=== PATIENT | male | born 1985 | race African-American/Black ===

== ENCOUNTER 2016-10-10 01:54 | Emergency (ER) | payer OTHER ==
[~2016-10-10] VITALS: Ht 180.3 cm; Wt 72.6 kg
--- NOTE | 2016-10-10 02:00 | NUR ---
PT AMBULATED INTO THE ER WITH A C/O SI WITH A PLAN TO JUMP OFF A BUILDING. PT WAS WALKING AROUND AND SAW THE HOSPITAL AND DECIDED TO GET HELP. PT APPEARS WELL TAKEN CARE OF, CLEAN, AND COOPERATIVE. SHAY ESCAMILLA LCSW, IS AT THE BEDSIDE SPEAKING TO THE PT.
--- NOTE | 2016-10-10 02:40 | NUR ---
URINE SAMPLE OBTAINED.
[2016-10-10 02:45] LABS: BASOPHILS # (AUTO) 0.1 /CMM (0.0-0.2); BASOPHILS % (AUTO) 0.9 % (0.0-2.0); EOSINOPHILS # (AUTO) 0.2 /CMM (0.0-0.7); HEMATOCRIT 39 % (39-51); HEMOGLOBIN 12.6 g/dL (13.5-17.5); LYMPHOCYTES # (AUTO) 3.4 /CMM (0.8-4.8); LYMPHOCYTES % (AUTO) 45.3 % (20.0-44.0); MEAN CORPUSCULAR HEMOGLOBIN 26 PG (26.0-33.0); MEAN CORPUSCULAR HGB CONC 33 g/dl (31.0-36.0); MEAN CORPUSCULAR VOLUME 79 fL (80-96); MONOCYTES # (AUTO) 0.3 /CMM (0.1-1.30); MONOCYTES % (AUTO) 3.9 % (2.0-12.0); NEUTROPHILS # (AUTO) 3.6 /CMM (1.8-8.9); NEUTROPHILS % (AUTO) 46.9 % (43.0-81.0); PLATELET COUNT (AUTO) 369 /CMM (150-450); RDW COEFFICIENT OF VARIATION 14.3 (11.5-15.0); RED BLOOD CELL COUNT(AUTO) 4.91 MIL/uL (4.5-6.0); WHITE BLOOD COUNT (AUTO) 7.6 K/uL (4.3-11.0)
[2016-10-10 03:00] LABS: ALANINE AMINOTRANSFERASE 24 U/L (12-78); ALCOHOL, BLOOD < 3 mg/dL (0-0); ALKALINE PHOSPHATASE 71 U/L (46-116); ASPARTATE AMINOTRANSFERASE 19 U/L (15-37); BILIRUBIN,DIRECT 0.1 mg/dL (0.0-0.2); BILIRUBIN,TOTAL 0.2 mg/dL (0.2-1.0); CARBON DIOXIDE 29 mmol/L (21-32); CHLORIDE 105 mmol/L (98-107); CREATININE 1.5 mg/dL (0.6-1.3); GLUCOSE 90 mg/dL (74-106); POTASSIUM 3.7 mmol/L (3.5-5.1); SODIUM SERUM 141 mmol/L (136-145); TOTAL PROTEIN, SERUM 7.8 g/dL (6.4-8.2); UREA NITROGEN, BLOOD 17 mg/dL (7-18)
[2016-10-10 03:11] LABS: ACETAMINOPHEN 0 ug/ml (10-30); SALICYLATE 0.6 mg/dL (2.8-20.0)
[2016-10-10 03:15] LABS: APPEARANCE,URINE CLEAR (CLEAR); BILIRUBIN,URINE NEGATIVE (NEGATIVE); BLOOD, URINE NEGATIVE Ery/uL (NEGATIVE); COLOR,URINE YELLOW (YELLOW); KETONES,URINE NEGATIVE (NEGATIVE); LEUKOCYTE ESTERASE ,URINE NEGATIVE (NEGATIVE); NITRITE, URINE NEGATIVE (NEGATIVE); PROTEIN,URINE TRACE mg/dl (NEGATIVE); UGLUCOSE NEGATIVE (NEGATIVE); UROBILINOGEN,URINE 0.2 EU/dL (0.2)
[2016-10-10 03:24] LABS: BACTERIA,URINE None seen /HPF (None Seen); RBC,URINE NONE SEEN /HPF (0-2); SQUAMOUS EPITHELIAL CELL,UR Rare /HPF (None Seen); WBC,URINE NONE SEEN /HPF (0-3)
[2016-10-10 03:25] LABS: MUCUS,URINE Few /LPF (None Seen)
[2016-10-10] MEDS ORDERED: OLANZAPINE 5 MG TABLET ONE (03:43)
--- NOTE | 2016-10-10 03:46 | NUR ---
PT REC'D ZYPREXA 5MG PO PER DR. AMOR.
[2016-10-10] MEDS ORDERED: OLANZAPINE 5 MG TABLET PO ONE (04:00)
--- NOTE | 2016-10-10 04:45 | NUR ---
Robert miguel in [facility] - 10/10/16 at 0713 by SVETA PT IS ON A 5150 OF 0400.
--- NOTE | 2016-10-10 06:05 | NUR ---
PT APPEARS TO BE SLEEPING SOUNDLY WITH NO S/S OF PAIN OR DISTRESS. WILL CONTINUE TO MONITOR THE PT.
--- NOTE | 2016-10-10 06:47 | NUR ---
CALLED DIETARY TO ORDER A BREAKFAST TRAY.
--- NOTE | 2016-10-10 07:06 | NUR ---
REPORT GIVEN TO BERENICE BLOOM, FOR [facility].
--- NOTE | 2016-10-10 07:10 | NUR ---
BREAKFAST TRAY PROVIDED FOR PATIENT
--- NOTE | 2016-10-10 07:20 | NUR ---
SITTER AT BEDSIDE
--- NOTE | 2016-10-10 07:20 | NUR ---
SITTING AT THE SIDE OF THE BED EATING BREAKFAST
--- NOTE | 2016-10-10 09:58 | NUR ---
MIRIAM APPIAH LCSW CALLED, STILL FEELING SUICIDAL, STS SHE WILL CALL [facility] [place]
--- NOTE | 2016-10-10 10:09 | NUR ---
CLINICALS AND FACESHEET FAXED TO [phone] , REQUESTED
[2016-10-10 12:00] VITALS: BP 128/75
--- NOTE | 2016-10-10 14:40 | NUR ---
SPOKE TO SARAH FROM [facility] [phone], ALEX SMITH WILL CALL BACK AFTER SPEAKING WITH HER MEDICAL TEAM Addendum: 10/10/16 at 1503 by MARTINE PHONE NUMBER [phone]
--- NOTE | 2016-10-10 15:00 | NUR ---
MIC --- CALLED TRANSPORT ETA IS 1630 PER [place].
--- NOTE | 2016-10-10 15:02 | NUR ---
REPORT GIVEN TO MARY BLOOM FOR PATIENT GOING TO [facility]
--- NOTE | 2016-10-10 16:52 | NUR ---
PT LEFT VIA AMBULANCE IN STABLE CONDITION. NAD NOTED. REPORT GIVEN TO EMT, NO FURTHER COMPLAINTS
== END 2016-10-10 16:51 ==
LOC: ER 02:06
DX: R45.851 Suicidal ideations (principal); F15.10 Other stimulant abuse, uncomplicated; F32.9 Major depressive disorder, single episode, unspecified; F41.9 Anxiety disorder, unspecified; Z85.72 Personal history of non-Hodgkin lymphomas; Z91.040 Latex allergy status
CPT/HCPCS: 36415; 80048-TC; 80076-TC; 80305; 81000-TC; 85025-TC; A4606; G0480; Z7610

== ENCOUNTER 2016-11-16 22:51 | Emergency (ER) | payer OTHER ==
[~2016-11-16] VITALS: Ht 172.7 cm; Wt 81.6 kg
--- NOTE | 2016-11-16 23:19 | NUR ---
DR VILLARREAL AT BEDSIDE TO EVAL.
[2016-11-16] MEDS ORDERED: METOCLOPRAMIDE HCL 10 MG/2 ML VIAL ONE ×2 (23:28→23:34)
[2016-11-16] MEDS ORDERED: diphenhydrAMINE HCL 50 MG/ML VIAL ONE ×2 (23:28→23:51)
[2016-11-16] MEDS ORDERED: diphenhydrAMINE HCL 50 MG/ML VIAL IV ONE (23:30)
[2016-11-16] MEDS ORDERED: METOCLOPRAMIDE HCL 10 MG/2 ML VIAL IV ONE (23:30)
[2016-11-17] MEDS ORDERED: diphenhydrAMINE HCL 50 MG/ML VIAL IV ONE
--- NOTE | 2016-11-17 01:46 | NUR ---
patient is sleeping comfortably in bed at this time.
--- NOTE | 2016-11-17 05:34 | NUR ---
IV removed. Catheter intact and site benign. Pressure and 4x4 applied to site. No bleeding noted. Patient discharged to home in stable condition. Written and verbal after care instructions given. Patient verbalizes understanding of instruction. Patient is ambulatory with steady gait, no further complaints.
[2016-11-17 05:35] VITALS: BP 110/60
== END 2016-11-17 05:36 | disposition home or self-care (01) ==
LOC: ER 22:51
DX: G43.909 Migraine, unspecified, not intractable, without status migrainosus (principal); R11.0 Nausea; Z85.72 Personal history of non-Hodgkin lymphomas; Z91.040 Latex allergy status
CPT/HCPCS: 96374; 96375; 99284; A4606 ×2; J1200 ×2; J2765 ×2; Z7610

== ENCOUNTER 2016-12-06 06:40 | Emergency (ER) | payer OTHER ==
[~2016-12-06] VITALS: Ht 172.7 cm; Wt 74.8 kg
--- NOTE | 2016-12-06 06:52 | NUR ---
BIBRA 878 FROM HOME C/O "COLD SENSATION FROM PELVIS TO MY NECK, IT PASSED MY HEART" PT NOTED ANXIOUS, PT AOX3 RR EVEN AND UNLABORED. NO SOB NOTED. NAD NOTED. NO NVD AT THIS TIME. PT GOWNED. WAITING FOR MD HAYES.
--- NOTE | 2016-12-06 07:35 | NUR ---
REPORT GIVEN TO MERLE SAAVEDRA FOR [facility].
--- NOTE | 2016-12-06 08:16 | NUR ---
Patient discharged to home in stable condition. Written and verbal after care instructions given. Patient verbalizes understanding of instruction.
[2016-12-06 08:17] VITALS: BP 120/83
== END 2016-12-06 08:20 | disposition home or self-care (01) ==
LOC: ER 06:41
DX: F41.9 Anxiety disorder, unspecified (principal); Z91.040 Latex allergy status
CPT/HCPCS: A4606; Z7610

== ENCOUNTER 2016-12-09 04:58 | Emergency (ER) | payer OTHER ==
[~2016-12-09] VITALS: Ht 170.2 cm; Wt 63.5 kg
[2016-12-09 05:05] VITALS: BP 122/77
--- NOTE | 2016-12-09 05:54 | NUR ---
pt left withou aci.
== END 2016-12-09 05:55 | disposition home or self-care (01) ==
LOC: ER 04:59
DX: F41.9 Anxiety disorder, unspecified (principal); Z91.040 Latex allergy status
CPT/HCPCS: 71010-TC; A4606; Z7610